=== PATIENT | male | born 1955 | race Hispanic/Latino ===

== ENCOUNTER 2018-11-16 09:29 | Inpatient (IN) | payer OTHER | END 2018-11-18 19:00 | disposition home health service (06) | LOC: DAHIP 09:29 → 4AH 15:23 | PROC: 0SRD0JZ Replacement of Left Knee Joint with Synthetic Substitute, Open Approach (ICD-10-PCS; principal; 2018-11-16 11:50) | DX: M17.12 Unilateral primary osteoarthritis, left knee (principal) ==